=== PATIENT | male | born 1995 | race African-American/Black ===

== ENCOUNTER 2023-01-20 19:40 | Inpatient (IN) | payer MEDICARE, MEDICAID ==
[~2023-01-20] VITALS: Ht 185.4 cm; Wt 149.4 kg
[2023-01-20 20:37] LABS: BASOPHILS % (AUTO) 0.9 % (0.0-2.0); EOSINOPHILS % (AUTO) 1.7 % (1.0-6.0); HEMATOCRIT 36.8 % (41-53); HEMOGLOBIN 11.6 g/dL (13.5-17.5); LYMPHOCYTES # (AUTO) 2.2 K/uL (1.0-4.8); LYMPHOCYTES % (AUTO) 22.8 % (22.0-44.0); MEAN CORPUSCULAR HEMOGLOBIN 26.4 pg (26.0-34.0); MEAN CORPUSCULAR HGB CONC 31.6 G/dL (31.0-37.0); MEAN CORPUSCULAR VOLUME 84 fL (80-100); MONOCYTES # (AUTO) 0.8 K/uL (0.1-1.0); MONOCYTES % (AUTO) 8.4 % (2.0-9.0); NEUTROPHILS # (AUTO) 6.4 K/uL (1.8-7.7); NEUTROPHILS % (AUTO) 66.2 % (40.0-70.0); PLATELET COUNT (AUTO) 202 K/uL (150-450); RED BLOOD CELL COUNT(AUTO) 4.41 MIL/uL (4.50-5.90); WHITE BLOOD COUNT (AUTO) 9.7 K/uL (4.5-11.0)
[2023-01-20 20:46] LABS: ANION GAP 6 mmol/L (8-16); CALCIUM, TOTAL 9.1 mg/dL (8.8-10.5); CARBON DIOXIDE 28 mmol/L (22-29); CHLORIDE 103 mmol/L (98-107); CREATININE 1.01 mg/dL (0.60-1.30); GLOMERULAR FILTR. RATE CALC > 60 mL/min (>60); GLUCOSE,RANDOM 131 mg/dL (70-110); SODIUM SERUM 137 mmol/L (136-145); UREA NITROGEN, BLOOD 11 mg/dL (7-18)
[2023-01-20 20:52] LABS: ALANINE AMINOTRANSFERASE 141 U/L (12-78); ALBUMIN 3.7 g/dL (3.4-5.0); ALKALINE PHOSPHATASE 90 U/L (46-116); ASPARTATE AMINOTRANSFERASE 80 U/L (15-37); BILIRUBIN,TOTAL 0.4 mg/dL (0.1-1.0); LIPASE 60 U/L (16-77); TOTAL PROTEIN, SERUM 7.7 g/dL (6.4-8.2)
[2023-01-20] MEDS ORDERED: QUET100T PO (22:02)
[2023-01-20] MEDS ORDERED: CLOZ100T61 PO (22:02)
[2023-01-21 00:47] LABS: COVID AG,FIA SOURCE NASAL SWAB
[2023-01-21 00:51] LABS: SARS-COV2 (COVID) ANTIGEN,FIA Negative (Negative)
[2023-01-21 02:19] VITALS: BP 130/90; PULSE 96; RESP 18; TEMP 97.4
[2023-01-21 02:24] VITALS: BP 130/90; PULSE 96; RESP 18; TEMP 97.4; O2SAT 100
[2023-01-21] MEDS ORDERED: INFLUENZA VIRUS VACCINE QVS 2023-24 (6MO+)/PF 60 MCG/0.5 ML SYRINGE IM. ONE (05:30)
[2023-01-21 10:01] VITALS: BP 151/80; PULSE 86; RESP 18; TEMP 97.5; O2SAT 94
[2023-01-21] MEDS ORDERED: PETROLATUM,WHITE 28 GM JELLY TP PRN (14:30)
[2023-01-21] MEDS ORDERED: LOPERAMIDE HCL 2 MG CAPSULE PO PRN (14:30)
[2023-01-21] MEDS ORDERED: CloNIDine HCL 0.1 MG TABLET PO PRN (14:30)
[2023-01-21] MEDS ORDERED: ONDANSETRON HCL 4 MG TABLET PO PRN (14:30)
[2023-01-21] MEDS ORDERED: MAGNESIUM HYDROXIDE SUSPENSION 30 ML UDCUP PO PRN (14:30)
[2023-01-21] MEDS: MAG HYDROX/ALUMINUM HYD/SIMETH ES 30 ML SUSPENSION UDCUP PO PRN (14:39)
[2023-01-21] MEDS: ACETAMINOPHEN 325 MG TABLET PO PRN (14:51)
[2023-01-21] MEDS: LORazepam 2 MG TABLET PO PRN (18:30)
[2023-01-21 20:35] VITALS: BP 134/77; PULSE 91; RESP 18; TEMP 97.9; O2SAT 95
[2023-01-21] MEDS: HALOPERIDOL 5 MG TABLET PO PRN (20:57)
[2023-01-21] MEDS: ZOLPIDEM TARTRATE 10 MG TABLET PO PRN (20:57)
[2023-01-22] MEDS: MAG HYDROX/ALUMINUM HYD/SIMETH ES 30 ML SUSPENSION UDCUP PO PRN ×2 (06:48→17:06)
[2023-01-22] MEDS: LORazepam 2 MG TABLET PO PRN ×3 (07:58→21:12)
[2023-01-22] MEDS: BENZOCAINE/MENTHOL LOZENGE PO PRN ×2 (08:47→18:57)
[2023-01-22 10:06] VITALS: BP 149/101; PULSE 91; RESP 18; TEMP 97; O2SAT 99
[2023-01-22] MEDS ORDERED: DIVA500T53 PO (11:44)
[2023-01-22] MEDS ORDERED: METF-446 PO (11:44)
[2023-01-22] MEDS ORDERED: DIPH50CA35 PO (11:44)
[2023-01-22] MEDS ORDERED: PROP20TA96 PO (11:44)
[2023-01-22] MEDS: ALBUTEROL SULFATE HFA 90 MCG/PUFF 8 GM INHALER IH PRN (12:11)
[2023-01-22] MEDS ORDERED: FLUTICASONE PROPIONATE 50 MCG/SPRAY 16 GM NASAL SPRAY NASAL PRN (13:45)
[2023-01-22] MEDS: DIVALPROEX SODIUM 500 MG DR TABLET PO SCH (16:31)
[2023-01-22] MEDS: OMEPRAZOLE 20 MG CAPSULE PO PRN (18:48)
[2023-01-22] MEDS: BENZTROPINE MESYLATE 2 MG TABLET PO SCH (20:22)
[2023-01-22 20:34] VITALS: BP 136/78; PULSE 88; RESP 18; TEMP 97.2
[2023-01-22] MEDS: ZOLPIDEM TARTRATE 10 MG TABLET PO PRN (21:12)
[2023-01-23] MEDS: LORazepam 2 MG TABLET PO PRN ×4 (02:51→19:52)
[2023-01-23] MEDS: BACITRACIN 28 GM OINTMENT TP PRN (03:09)
[2023-01-23 06:06] LABS: HEPATITIS A ANTIBODY IGM Negative (Negative); HEPATITIS B CORE IGM Negative (Negative); HEPATITIS C AB (EIA) Non Reactive (Non Reactive); HIV 1-2 SCREEN 4TH GEN W/RFLX Non Reactive (Non Reactive)
[2023-01-23] MEDS: DIVALPROEX SODIUM 500 MG DR TABLET PO SCH ×2 (07:59→16:30)
[2023-01-23 08:38] VITALS: BP 153/93; PULSE 85; RESP 16; TEMP 98.1; O2SAT 97
[2023-01-23] MEDS: HALOPERIDOL 5 MG TABLET PO PRN ×3 (08:43→19:52)
[2023-01-23] MEDS ORDERED: CloZAPine 25 MG TABLET PO SCH (09:00)
[2023-01-23 09:21] LABS: BASOPHILS % (AUTO) 0.6 % (0.0-2.0); EOSINOPHILS % (AUTO) 1.6 % (1.0-6.0); HEMATOCRIT 41.4 % (41-53); HEMOGLOBIN 13.1 g/dL (13.5-17.5); LYMPHOCYTES # (AUTO) 2.8 K/uL (1.0-4.8); LYMPHOCYTES % (AUTO) 24.5 % (22.0-44.0); MEAN CORPUSCULAR HEMOGLOBIN 26.2 pg (26.0-34.0); MEAN CORPUSCULAR HGB CONC 31.6 G/dL (31.0-37.0); MEAN CORPUSCULAR VOLUME 83 fL (80-100); MONOCYTES # (AUTO) 0.8 K/uL (0.1-1.0); NEUTROPHILS # (AUTO) 7.5 K/uL (1.8-7.7); NEUTROPHILS % (AUTO) 66.3 % (40.0-70.0); PLATELET COUNT (AUTO) 210 K/uL (150-450); RED BLOOD CELL COUNT(AUTO) 4.99 MIL/uL (4.50-5.90); RED CELL DISTRIBUTION WIDTH 14.9 % (11.5-14.5); WHITE BLOOD COUNT (AUTO) 11.4 K/uL (4.5-11.0)
[2023-01-23] MEDS: ZOLPIDEM TARTRATE 10 MG TABLET PO PRN (21:38)
[2023-01-23] MEDS: BENZTROPINE MESYLATE 2 MG TABLET PO SCH (21:40)
[2023-01-23 22:07] VITALS: BP 146/86; PULSE 84; RESP 16; TEMP 97.8
[2023-01-24] MEDS: BENZOCAINE/MENTHOL LOZENGE PO PRN ×2 (00:45→05:05)
[2023-01-24] MEDS: HALOPERIDOL 5 MG TABLET PO PRN ×2 (05:05→08:11)
[2023-01-24] MEDS: DIVALPROEX SODIUM 500 MG DR TABLET PO SCH ×2 (08:12→16:41)
[2023-01-24 08:15] VITALS: BP 151/97; PULSE 94; RESP 16; TEMP 96.5; O2SAT 98
[2023-01-24] MEDS: IBUPROFEN 600 MG TABLET PO PRN ×2 (08:15→21:18)
[2023-01-24] MEDS ORDERED: CloZAPine 25 MG TABLET PO SCH ×2 (09:00→21:00)
[2023-01-24 09:15] VITALS: BP 148/84; PULSE 90; RESP 17; TEMP 97.2
[2023-01-24 13:05] VITALS: BP 151/97; PULSE 94; RESP 16; TEMP 96.5
[2023-01-24 20:45] VITALS: RESP 20
[2023-01-24 21:15] VITALS: BP 140/87; PULSE 87; RESP 18; TEMP 98.2; O2SAT 98
[2023-01-24] MEDS: ALBUTEROL SULFATE HFA 90 MCG/PUFF 8 GM INHALER IH PRN (21:15)
[2023-01-24] MEDS: MAG HYDROX/ALUMINUM HYD/SIMETH ES 30 ML SUSPENSION UDCUP PO PRN (21:16)
[2023-01-24] MEDS: BENZTROPINE MESYLATE 2 MG TABLET PO SCH (21:17)
[2023-01-24] MEDS: ZOLPIDEM TARTRATE 10 MG TABLET PO PRN (21:17)
[2023-01-24] MEDS: OMEPRAZOLE 20 MG CAPSULE PO PRN (21:18)
[2023-01-24 22:18] VITALS: RESP 18
[2023-01-25] MEDS: PHENYLEPHRINE/SHK LV/MIN OIL/PET 57 GM OINTMENT TP PRN (04:35)
[2023-01-25] MEDS: HALOPERIDOL 5 MG TABLET PO PRN ×3 (08:01→12:26)
[2023-01-25] MEDS: CloZAPine 25 MG TABLET PO SCH ×2 (08:15→08:25)
[2023-01-25] MEDS: DIVALPROEX SODIUM 500 MG DR TABLET PO SCH ×2 (08:25→17:03)
[2023-01-25] MEDS: DOCUSATE SODIUM 100 MG CAPSULE PO PRN (09:56)
[2023-01-25 10:22] VITALS: PULSE 89; RESP 18; TEMP 97.5; O2SAT 98
[2023-01-25] MEDS: ALBUTEROL SULFATE HFA 90 MCG/PUFF 8 GM INHALER IH PRN ×2 (12:21→20:55)
[2023-01-25 17:04] VITALS: RESP 18; TEMP 98
[2023-01-25] MEDS: IBUPROFEN 600 MG TABLET PO PRN (17:04)
[2023-01-25 18:05] VITALS: RESP 18; TEMP 98
[2023-01-25] MEDS: BENZOCAINE/MENTHOL LOZENGE PO PRN (18:21)
[2023-01-25] MEDS: ZOLPIDEM TARTRATE 10 MG TABLET PO PRN (20:55)
[2023-01-25] MEDS: BENZTROPINE MESYLATE 2 MG TABLET PO SCH (20:56)
[2023-01-25] MEDS ORDERED: CloZAPine 25 MG TABLET PO SCH (21:00)
[2023-01-26] MEDS: HALOPERIDOL 5 MG TABLET PO PRN ×2 (05:24→17:15)
[2023-01-26] MEDS: ALBUTEROL SULFATE HFA 90 MCG/PUFF 8 GM INHALER IH PRN (08:14)
[2023-01-26 08:15] VITALS: BP 154/105; PULSE 87; RESP 18; TEMP 98; O2SAT 97
[2023-01-26] MEDS: IBUPROFEN 600 MG TABLET PO PRN (08:15)
[2023-01-26] MEDS: CloZAPine 25 MG TABLET PO SCH ×2 (08:15→21:10)
[2023-01-26] MEDS: DIVALPROEX SODIUM 500 MG DR TABLET PO SCH ×2 (08:40→16:46)
[2023-01-26 09:15] VITALS: RESP 18
[2023-01-26 20:00] VITALS: BP 162/98; PULSE 90; RESP 18; TEMP 98; O2SAT 98
[2023-01-26] MEDS: ZOLPIDEM TARTRATE 10 MG TABLET PO PRN (21:10)
[2023-01-26] MEDS: BENZTROPINE MESYLATE 2 MG TABLET PO SCH (21:10)
[2023-01-27] MEDS: HALOPERIDOL 5 MG TABLET PO PRN ×3 (00:30→16:25)
[2023-01-27] MEDS: CloZAPine 25 MG TABLET PO SCH ×2 (08:19→21:06)
[2023-01-27] MEDS: IBUPROFEN 600 MG TABLET PO PRN ×2 (08:19→16:25)
[2023-01-27] MEDS: DOCUSATE SODIUM 100 MG CAPSULE PO PRN (08:19)
[2023-01-27] MEDS: DIVALPROEX SODIUM 500 MG DR TABLET PO SCH ×2 (08:19→16:27)
[2023-01-27] MEDS: BENZOCAINE/MENTHOL LOZENGE PO PRN (08:25)
[2023-01-27 09:18] VITALS: BP 165/106; PULSE 100; RESP 18; TEMP 97; O2SAT 97
[2023-01-27 10:18] VITALS: RESP 18
[2023-01-27 16:25] VITALS: RESP 20
[2023-01-27 17:25] VITALS: RESP 18
[2023-01-27 21:03] VITALS: RESP 18
[2023-01-27] MEDS: BENZTROPINE MESYLATE 2 MG TABLET PO SCH (21:06)
[2023-01-28] MEDS: ZOLPIDEM TARTRATE 10 MG TABLET PO PRN ×2 (00:12→21:15)
[2023-01-28] MEDS ORDERED: HALOPERIDOL LACTATE 5 MG/ML VIAL IM ONE ×2 (00:45→01:00)
[2023-01-28] MEDS ORDERED: DiphenhydrAMINE HCL 50 MG/ML VIAL IM ONE (00:45)
[2023-01-28] MEDS ORDERED: LORazepam 2 MG/ML VIAL IM ONE (00:45)
[2023-01-28] MEDS ORDERED: LORazepam 2 MG/ML VIAL ONE (00:47)
[2023-01-28] MEDS ORDERED: HALOPERIDOL LACTATE 5 MG/ML VIAL ONE (00:47)
[2023-01-28] MEDS ORDERED: DiphenhydrAMINE HCL 50 MG/ML VIAL ONE (00:47)
[2023-01-28 07:32] VITALS: RESP 18
[2023-01-28] MEDS: ACETAMINOPHEN 325 MG TABLET PO PRN ×3 (07:36→16:57)
[2023-01-28] MEDS: DIVALPROEX SODIUM 500 MG DR TABLET PO SCH ×2 (08:06→16:38)
[2023-01-28 08:32] VITALS: BP 152/90; PULSE 98; RESP 18; TEMP 97.2
[2023-01-28] MEDS ORDERED: CloZAPine 25 MG TABLET PO SCH (09:00)
[2023-01-28] MEDS: PHENYLEPHRINE/SHK LV/MIN OIL/PET 57 GM OINTMENT TP PRN (09:13)
[2023-01-28] MEDS: ALBUTEROL SULFATE HFA 90 MCG/PUFF 8 GM INHALER IH PRN (09:33)
[2023-01-28] MEDS: DOCUSATE SODIUM 100 MG CAPSULE PO PRN (09:34)
[2023-01-28 09:37] VITALS: BP 152/90; PULSE 100; RESP 19; TEMP 97.6; O2SAT 96
[2023-01-28] MEDS: IBUPROFEN 600 MG TABLET PO PRN (16:59)
[2023-01-28 20:30] VITALS: RESP 18
[2023-01-28] MEDS ORDERED: CloZAPine 100 MG TABLET PO SCH (21:00)
[2023-01-28] MEDS: BENZTROPINE MESYLATE 2 MG TABLET PO SCH (21:15)
[2023-01-29 02:15] VITALS: BP 150/96; PULSE 92; RESP 20; TEMP 97.9; O2SAT 98
[2023-01-29] MEDS: IBUPROFEN 600 MG TABLET PO PRN (02:20)
[2023-01-29] MEDS: OMEPRAZOLE 20 MG CAPSULE PO PRN (07:29)
[2023-01-29] MEDS: DIVALPROEX SODIUM 500 MG DR TABLET PO SCH ×3 (07:30→18:53)
[2023-01-29] MEDS ORDERED: CloZAPine 25 MG TABLET PO SCH (09:00)
[2023-01-29 13:35] VITALS: BP 133/113; PULSE 119; RESP 18; TEMP 97.1
[2023-01-29] MEDS: ACETAMINOPHEN 325 MG TABLET PO PRN (13:35)
[2023-01-29] MEDS ORDERED: HALOPERIDOL LACTATE 5 MG/ML VIAL IM ONE (14:30)
[2023-01-29] MEDS ORDERED: LORazepam 2 MG/ML VIAL IM ONE (14:30)
[2023-01-29] MEDS ORDERED: DiphenhydrAMINE HCL 50 MG/ML VIAL IM ONE (14:30)
[2023-01-29 14:35] VITALS: BP 136/82; PULSE 86; RESP 18; TEMP 98
[2023-01-29] MEDS: BACITRACIN 28 GM OINTMENT TP PRN (18:53)
[2023-01-29 20:38] VITALS: RESP 18
[2023-01-29] MEDS: BENZTROPINE MESYLATE 2 MG TABLET PO SCH (20:56)
[2023-01-29] MEDS ORDERED: CloZAPine 100 MG TABLET PO SCH (21:00)
[2023-01-29] MEDS: ZOLPIDEM TARTRATE 10 MG TABLET PO PRN (23:19)
[2023-01-29] MEDS: HALOPERIDOL 5 MG TABLET PO PRN (23:20)
[2023-01-30] VITALS (11 sets, daily range): BP systolic 117–179; BP diastolic 67–107; PULSE 53–99; RESP 17–20; TEMP 97.2–97.6
[2023-01-30] MEDS: IBUPROFEN 600 MG TABLET PO PRN ×3 (00:15→17:33)
[2023-01-30] MEDS: DIVALPROEX SODIUM 500 MG DR TABLET PO SCH ×2 (08:10→17:00)
[2023-01-30] MEDS: HALOPERIDOL 5 MG TABLET PO PRN ×2 (08:10→17:33)
[2023-01-30] MEDS: PHENYLEPHRINE/SHK LV/MIN OIL/PET 57 GM OINTMENT TP PRN (08:13)
[2023-01-30] MEDS: DOCUSATE SODIUM 100 MG CAPSULE PO PRN (08:30)
[2023-01-30] MEDS ORDERED: CloZAPine 25 MG TABLET PO SCH (09:00)
[2023-01-30] MEDS: ACETAMINOPHEN 325 MG TABLET PO PRN (09:40)
[2023-01-30 09:48] LABS: BASOPHILS % (AUTO) 0.4 % (0.0-2.0); EOSINOPHILS % (AUTO) 1.7 % (1.0-6.0); HEMATOCRIT 39.9 % (41-53); HEMOGLOBIN 12.8 g/dL (13.5-17.5); LYMPHOCYTES # (AUTO) 2.3 K/uL (1.0-4.8); LYMPHOCYTES % (AUTO) 27.6 % (22.0-44.0); MEAN CORPUSCULAR HEMOGLOBIN 26.5 pg (26.0-34.0); MEAN CORPUSCULAR VOLUME 83 fL (80-100); MONOCYTES # (AUTO) 0.6 K/uL (0.1-1.0); MONOCYTES % (AUTO) 7.5 % (2.0-9.0); NEUTROPHILS # (AUTO) 5.3 K/uL (1.8-7.7); NEUTROPHILS % (AUTO) 62.8 % (40.0-70.0); PLATELET COUNT (AUTO) 174 K/uL (150-450); RED BLOOD CELL COUNT(AUTO) 4.83 MIL/uL (4.50-5.90); RED CELL DISTRIBUTION WIDTH 14.8 % (11.5-14.5); WHITE BLOOD COUNT (AUTO) 8.4 K/uL (4.5-11.0)
[2023-01-30] MEDS: TraMADol HCL 50 MG TABLET PO PRN ×2 (13:15→19:41)
[2023-01-30] MEDS: BENZTROPINE MESYLATE 2 MG TABLET PO SCH (20:12)
[2023-01-30] MEDS ORDERED: CloZAPine 100 MG TABLET PO SCH (21:00)
[2023-01-31] MEDS: ACETAMINOPHEN 325 MG TABLET PO PRN ×2 (02:28→09:53)
[2023-01-31 03:25] VITALS: RESP 18
[2023-01-31] MEDS: CloZAPine 100 MG TABLET PO SCH ×2 (08:16→21:58)
[2023-01-31 08:17] VITALS: BP 154/92; PULSE 90; RESP 18; TEMP 97.8; O2SAT 98
[2023-01-31] MEDS: DIVALPROEX SODIUM 500 MG DR TABLET PO SCH ×2 (09:00→16:58)
[2023-01-31 09:50] VITALS: RESP 18
[2023-01-31 10:53] VITALS: RESP 18
[2023-01-31] MEDS ORDERED: PNEUMOCOCCAL VACCINE POLYVALENT 0.5 ML SYRINGE [PPSV23] IM. ONE (15:15)
[2023-01-31] MEDS: BENZTROPINE MESYLATE 2 MG TABLET PO SCH (21:58)
[2023-02-01] VITALS (8 sets, daily range): BP systolic 123–128; BP diastolic 90–94; PULSE 92–99; RESP 18–20; TEMP 97.1–98.2; O2SAT 98–99
[2023-02-01] MEDS: CloZAPine 100 MG TABLET PO SCH ×2 (08:14→21:37)
[2023-02-01] MEDS: ACETAMINOPHEN 325 MG TABLET PO PRN ×2 (08:15→16:43)
[2023-02-01] MEDS: DIVALPROEX SODIUM 500 MG DR TABLET PO SCH ×2 (08:23→16:43)
[2023-02-01] MEDS: TraMADol HCL 50 MG TABLET PO PRN (10:12)
[2023-02-01] MEDS: BENZTROPINE MESYLATE 2 MG TABLET PO SCH (21:36)
[2023-02-01] MEDS: ZOLPIDEM TARTRATE 10 MG TABLET PO PRN (22:11)
[2023-02-01] MEDS: IBUPROFEN 600 MG TABLET PO PRN (22:11)
[2023-02-02 08:15] VITALS: BP 138/84; PULSE 101; RESP 18; TEMP 97.6; O2SAT 97
[2023-02-02] MEDS ORDERED: CloZAPine 25 MG TABLET PO SCH (09:00)
[2023-02-02] MEDS: DIVALPROEX SODIUM 500 MG DR TABLET PO SCH ×3 (09:00→17:00)
[2023-02-02] MEDS: HALOPERIDOL 5 MG TABLET PO PRN (09:30)
[2023-02-02 20:07] VITALS: RESP 18
[2023-02-02] MEDS: BENZTROPINE MESYLATE 2 MG TABLET PO SCH (20:24)
[2023-02-02] MEDS ORDERED: CloZAPine 100 MG TABLET PO SCH (21:00)
[2023-02-02 21:25] VITALS: BP 140/92; PULSE 95; RESP 20; TEMP 97.9; O2SAT 98
[2023-02-02] MEDS: IBUPROFEN 600 MG TABLET PO PRN (21:29)
[2023-02-02] MEDS: ZOLPIDEM TARTRATE 10 MG TABLET PO PRN (21:29)
[2023-02-03] MEDS: DIVALPROEX SODIUM 500 MG DR TABLET PO SCH ×2 (08:21→16:04)
[2023-02-03] MEDS ORDERED: CloZAPine 25 MG TABLET PO SCH (09:00)
[2023-02-03 10:29] VITALS: BP 125/78; PULSE 113; RESP 18; TEMP 97.9; O2SAT 95
[2023-02-03] MEDS: BENZTROPINE MESYLATE 2 MG TABLET PO SCH (20:17)
[2023-02-03 20:19] VITALS: BP 120/80; PULSE 85; RESP 17; TEMP 97.8; O2SAT 98
[2023-02-03] MEDS ORDERED: CloZAPine 100 MG TABLET PO SCH (21:00)
[2023-02-03 22:35] VITALS: BP 132/76; PULSE 89; RESP 18; TEMP 98.6
[2023-02-03] MEDS: HALOPERIDOL 5 MG TABLET PO PRN (22:36)
[2023-02-03] MEDS: ZOLPIDEM TARTRATE 10 MG TABLET PO PRN (22:36)
[2023-02-03] MEDS: TraMADol HCL 50 MG TABLET PO PRN (22:42)
[2023-02-04 08:01] VITALS: RESP 18
[2023-02-04] MEDS: DIVALPROEX SODIUM 500 MG DR TABLET PO SCH ×2 (09:00→17:00)
[2023-02-04] MEDS: CloZAPine 100 MG TABLET PO SCH ×2 (09:52→20:21)
[2023-02-04 15:13] VITALS: RESP 18
[2023-02-04] MEDS: IBUPROFEN 600 MG TABLET PO PRN ×2 (15:13→21:17)
[2023-02-04 16:13] VITALS: RESP 18; TEMP 98
[2023-02-04] MEDS: BENZTROPINE MESYLATE 2 MG TABLET PO SCH (20:20)
[2023-02-04 20:29] VITALS: BP 152/88; PULSE 116; RESP 18; TEMP 98.3; O2SAT 95
[2023-02-04] MEDS: HALOPERIDOL 5 MG TABLET PO PRN (21:17)
[2023-02-04] MEDS: ZOLPIDEM TARTRATE 10 MG TABLET PO PRN (21:17)
[2023-02-05 08:28] VITALS: BP 122/69; PULSE 100; RESP 18; TEMP 97.8; O2SAT 95
[2023-02-05] MEDS: DIVALPROEX SODIUM 500 MG DR TABLET PO SCH ×2 (09:00→17:00)
[2023-02-05 09:58] VITALS: RESP 18; TEMP 98
[2023-02-05] MEDS: CloZAPine 100 MG TABLET PO SCH ×2 (09:58→21:22)
[2023-02-05] MEDS: TraMADol HCL 50 MG TABLET PO PRN (09:58)
[2023-02-05 10:58] VITALS: RESP 18; TEMP 98.1
[2023-02-05 20:07] VITALS: RESP 18
[2023-02-05] MEDS: BENZTROPINE MESYLATE 2 MG TABLET PO SCH (21:00)
[2023-02-05] MEDS: ZOLPIDEM TARTRATE 10 MG TABLET PO PRN (21:23)
[2023-02-05] MEDS: HALOPERIDOL 5 MG TABLET PO PRN (21:23)
[2023-02-05 23:30] VITALS: RESP 19
[2023-02-05] MEDS: ACETAMINOPHEN 325 MG TABLET PO PRN (23:31)
[2023-02-05] MEDS: IBUPROFEN 600 MG TABLET PO PRN (23:43)
[2023-02-05] MEDS ORDERED: HALOPERIDOL LACTATE 5 MG/ML VIAL IM ONE (23:45)
[2023-02-05] MEDS ORDERED: LORazepam 2 MG/ML VIAL IM ONE (23:45)
[2023-02-05] MEDS ORDERED: DiphenhydrAMINE HCL 50 MG/ML VIAL IM ONE (23:45)
[2023-02-06] MEDS: CloZAPine 100 MG TABLET PO SCH ×2 (08:09→20:28)
[2023-02-06] MEDS: HALOPERIDOL 5 MG TABLET PO PRN (08:09)
[2023-02-06] MEDS: DIVALPROEX SODIUM 500 MG DR TABLET PO SCH ×2 (08:12→16:10)
[2023-02-06 08:27] VITALS: BP 100/73; PULSE 71; RESP 18; TEMP 97.9
[2023-02-06] MEDS: TraMADol HCL 50 MG TABLET PO PRN ×2 (12:06→22:06)
[2023-02-06 12:07] VITALS: RESP 18
[2023-02-06 13:39] VITALS: RESP 18
[2023-02-06] MEDS: ACETAMINOPHEN 325 MG TABLET PO PRN (13:39)
[2023-02-06 20:05] VITALS: BP 153/96; PULSE 102; RESP 18; TEMP 98.1
[2023-02-06] MEDS: BENZTROPINE MESYLATE 2 MG TABLET PO SCH (20:28)
[2023-02-06] MEDS: ZOLPIDEM TARTRATE 10 MG TABLET PO PRN (21:14)
[2023-02-06 22:00] VITALS: BP 116/61; PULSE 98; RESP 20; TEMP 98.3
[2023-02-06 23:06] VITALS: RESP 18
[2023-02-07] MEDS: DIVALPROEX SODIUM 500 MG DR TABLET PO SCH ×2 (09:00→17:00)
[2023-02-07] MEDS: CloZAPine 100 MG TABLET PO SCH ×2 (09:27→20:12)
[2023-02-07 09:32] VITALS: BP 153/85; PULSE 101; RESP 18; TEMP 97.8; O2SAT 100
[2023-02-07] MEDS: ACETAMINOPHEN 325 MG TABLET PO PRN (09:32)
[2023-02-07 10:32] VITALS: RESP 18
[2023-02-07 17:11] LABS: HEMATOCRIT 38.9 % (41-53); HEMOGLOBIN 12.4 g/dL (13.5-17.5); MEAN CORPUSCULAR HGB CONC 31.9 G/dL (31.0-37.0); MEAN CORPUSCULAR VOLUME 82 fL (80-100); PLATELET COUNT (AUTO) 201 K/uL (150-450); RED BLOOD CELL COUNT(AUTO) 4.77 MIL/uL (4.50-5.90); RED CELL DISTRIBUTION WIDTH 14.2 % (11.5-14.5); WHITE BLOOD COUNT (AUTO) 13.2 K/uL (4.5-11.0)
[2023-02-07 18:08] LABS: BAND NEUTROPHILS % (MANUAL) 6 % (0-5); BASOPHILS % (MANUAL) 1 % (0-2); EOSINOPHILS % (MANUAL) 2 % (1-6); LYMPHOCYTES % (MANUAL) 22 % (22-44); MONOCYTES % (MANUAL) 8 % (2-9); SEGMENTED NEUTROPHILS % 61 % (40-70); TOTAL CELLS COUNTED 100
[2023-02-07] MEDS: BENZTROPINE MESYLATE 2 MG TABLET PO SCH (21:00)
[2023-02-07] MEDS: ZOLPIDEM TARTRATE 10 MG TABLET PO PRN (21:32)
[2023-02-08 07:40] LABS: BASOPHILS % (AUTO) 0.8 % (0.0-2.0); EOSINOPHILS % (AUTO) 2.8 % (1.0-6.0); HEMATOCRIT 38.5 % (41-53); HEMOGLOBIN 12.5 g/dL (13.5-17.5); LYMPHOCYTES # (AUTO) 2.8 K/uL (1.0-4.8); LYMPHOCYTES % (AUTO) 22.5 % (22.0-44.0); MEAN CORPUSCULAR HEMOGLOBIN 26.4 pg (26.0-34.0); MEAN CORPUSCULAR HGB CONC 32.6 G/dL (31.0-37.0); MEAN CORPUSCULAR VOLUME 81 fL (80-100); MONOCYTES # (AUTO) 0.7 K/uL (0.1-1.0); MONOCYTES % (AUTO) 5.9 % (2.0-9.0); NEUTROPHILS # (AUTO) 8.4 K/uL (1.8-7.7); PLATELET COUNT (AUTO) 196 K/uL (150-450); RED BLOOD CELL COUNT(AUTO) 4.75 MIL/uL (4.50-5.90); RED CELL DISTRIBUTION WIDTH 14.3 % (11.5-14.5); WHITE BLOOD COUNT (AUTO) 12.4 K/uL (4.5-11.0)
[2023-02-08 08:03] VITALS: BP 135/74; PULSE 100; RESP 18; TEMP 97.7; O2SAT 97
[2023-02-08] MEDS: CloZAPine 100 MG TABLET PO SCH ×2 (08:35→20:05)
[2023-02-08] MEDS: DIVALPROEX SODIUM 500 MG DR TABLET PO SCH ×2 (08:37→16:21)
[2023-02-08 14:29] VITALS: RESP 18; O2SAT 98
[2023-02-08] MEDS: IBUPROFEN 600 MG TABLET PO PRN (14:29)
[2023-02-08] MEDS: BENZTROPINE MESYLATE 2 MG TABLET PO SCH (20:05)
[2023-02-08] MEDS: ZOLPIDEM TARTRATE 10 MG TABLET PO PRN (21:41)
[2023-02-08 23:02] VITALS: RESP 18
[2023-02-09 08:00] VITALS: RESP 18
[2023-02-09] MEDS: DIVALPROEX SODIUM 500 MG DR TABLET PO SCH ×2 (08:46→17:00)
[2023-02-09] MEDS: CloZAPine 100 MG TABLET PO SCH ×2 (08:46→20:10)
[2023-02-09] MEDS: DICLOFENAC SODIUM 1% 100 GM GEL [4GM] TP SCH (18:38)
[2023-02-09] MEDS: HALOPERIDOL 5 MG TABLET PO PRN (19:59)
[2023-02-09] MEDS: BENZTROPINE MESYLATE 2 MG TABLET PO SCH (20:10)
[2023-02-09] MEDS: ZOLPIDEM TARTRATE 10 MG TABLET PO PRN (21:21)
[2023-02-10 08:53] VITALS: RESP 18
[2023-02-10] MEDS: DIVALPROEX SODIUM 500 MG DR TABLET PO SCH ×3 (09:00→16:11)
[2023-02-10] MEDS: CloZAPine 100 MG TABLET PO SCH ×2 (09:21→21:13)
[2023-02-10] MEDS: PHENYLEPHRINE/SHK LV/MIN OIL/PET 57 GM OINTMENT TP PRN (09:22)
[2023-02-10] MEDS: DICLOFENAC SODIUM 1% 100 GM GEL [4GM] TP SCH ×3 (09:23→16:11)
[2023-02-10] MEDS ORDERED: TUBERCULIN, PURIFIED PROTEIN DERIVATIVE 5 TU/0.1 ML SYRINGE ID ONE (15:45)
[2023-02-10 17:51] LABS: COVID AG,FIA SOURCE NASAL SWAB
[2023-02-10 18:09] LABS: SARS-COV2 (COVID) ANTIGEN,FIA Negative (Negative)
[2023-02-10] MEDS: HALOPERIDOL 5 MG TABLET PO PRN (21:13)
[2023-02-10] MEDS: ZOLPIDEM TARTRATE 10 MG TABLET PO PRN (21:18)
[2023-02-10] MEDS: BENZTROPINE MESYLATE 2 MG TABLET PO SCH (21:18)
[2023-02-10 21:45] VITALS: RESP 18; TEMP 98.1
[2023-02-10] MEDS: TraMADol HCL 50 MG TABLET PO PRN (21:45)
[2023-02-10 22:59] VITALS: RESP 18
[2023-02-11] MEDS: CloZAPine 100 MG TABLET PO SCH ×2 (07:46→21:18)
[2023-02-11] MEDS: DICLOFENAC SODIUM 1% 100 GM GEL [4GM] TP SCH ×3 (07:46→16:30)
[2023-02-11] MEDS: DIVALPROEX SODIUM 500 MG DR TABLET PO SCH ×2 (07:46→16:30)
[2023-02-11 08:05] VITALS: BP 125/74; PULSE 110; RESP 19; TEMP 98.1; O2SAT 95
[2023-02-11 20:03] VITALS: BP 132/62; PULSE 94; RESP 18; TEMP 97.2; O2SAT 96
[2023-02-11 20:18] VITALS: BP 133/66; PULSE 97; RESP 20; TEMP 97.5; O2SAT 97
[2023-02-11] MEDS: TraMADol HCL 50 MG TABLET PO PRN (20:18)
[2023-02-11 21:18] VITALS: RESP 18; TEMP 97.4
[2023-02-11] MEDS: BENZTROPINE MESYLATE 2 MG TABLET PO SCH (21:18)
[2023-02-11] MEDS: ZOLPIDEM TARTRATE 10 MG TABLET PO PRN (21:18)
[2023-02-11] MEDS: HALOPERIDOL 5 MG TABLET PO PRN (21:18)
[2023-02-12 08:30] VITALS: RESP 18
[2023-02-12] MEDS: DIVALPROEX SODIUM 500 MG DR TABLET PO SCH ×2 (09:00→16:01)
[2023-02-12] MEDS: CloZAPine 100 MG TABLET PO SCH ×2 (09:00→20:22)
[2023-02-12] MEDS: DICLOFENAC SODIUM 1% 100 GM GEL [4GM] TP SCH ×3 (11:05→16:01)
[2023-02-12 20:04] VITALS: RESP 18
[2023-02-12] MEDS: BENZTROPINE MESYLATE 2 MG TABLET PO SCH (20:22)
[2023-02-13] MEDS: DICLOFENAC SODIUM 1% 100 GM GEL [4GM] TP SCH ×3 (07:51→16:13)
[2023-02-13] MEDS: DIVALPROEX SODIUM 500 MG DR TABLET PO SCH ×2 (07:51→16:13)
[2023-02-13] MEDS: CloZAPine 100 MG TABLET PO SCH ×2 (07:52→20:36)
[2023-02-13 09:34] VITALS: BP 119/81; PULSE 86; RESP 16; TEMP 96.6; O2SAT 95
[2023-02-13 20:03] VITALS: BP 125/74; PULSE 110; RESP 18; TEMP 97.5; O2SAT 95
[2023-02-13] MEDS: HALOPERIDOL 5 MG TABLET PO PRN (20:36)
[2023-02-13] MEDS: ZOLPIDEM TARTRATE 10 MG TABLET PO PRN (20:36)
[2023-02-13] MEDS: BENZTROPINE MESYLATE 2 MG TABLET PO SCH (20:36)
[2023-02-14] MEDS: DIVALPROEX SODIUM 500 MG DR TABLET PO SCH ×2 (09:00→16:15)
[2023-02-14] MEDS: DICLOFENAC SODIUM 1% 100 GM GEL [4GM] TP SCH ×3 (09:00→16:15)
[2023-02-14] MEDS: CloZAPine 100 MG TABLET PO SCH ×2 (09:55→20:39)
[2023-02-14] MEDS: BENZTROPINE MESYLATE 2 MG TABLET PO SCH (20:41)
[2023-02-14] MEDS: ZOLPIDEM TARTRATE 10 MG TABLET PO PRN (23:22)
[2023-02-15] MEDS: CloZAPine 100 MG TABLET PO SCH (08:13)
[2023-02-15] MEDS: DICLOFENAC SODIUM 1% 100 GM GEL [4GM] TP SCH ×3 (08:13→17:00)
[2023-02-15] MEDS: DIVALPROEX SODIUM 500 MG DR TABLET PO SCH ×2 (08:13→17:00)
[2023-02-15 09:04] VITALS: RESP 18
[2023-02-15 10:26] LABS: EOSINOPHILS % (AUTO) 2.5 % (1.0-6.0); HEMATOCRIT 39.8 % (41-53); HEMOGLOBIN 12.8 g/dL (13.5-17.5); LYMPHOCYTES # (AUTO) 2.3 K/uL (1.0-4.8); LYMPHOCYTES % (AUTO) 18.6 % (22.0-44.0); MEAN CORPUSCULAR HEMOGLOBIN 26.2 pg (26.0-34.0); MEAN CORPUSCULAR HGB CONC 32.3 G/dL (31.0-37.0); MEAN CORPUSCULAR VOLUME 81 fL (80-100); MONOCYTES # (AUTO) 0.6 K/uL (0.1-1.0); MONOCYTES % (AUTO) 4.9 % (2.0-9.0); PLATELET COUNT (AUTO) 235 K/uL (150-450); RED CELL DISTRIBUTION WIDTH 14.5 % (11.5-14.5); WHITE BLOOD COUNT (AUTO) 12.3 K/uL (4.5-11.0)
[2023-02-15] MEDS ORDERED: DIVA-112 PO (10:54)
[2023-02-15] MEDS ORDERED: CLOZ100T61 PO ×2 (10:54)
[2023-02-15] MEDS ORDERED: BENZ2TAB71 PO (10:54)
[2023-02-15] MEDS ORDERED: DICL100G60 TP (12:17)
== END 2023-02-15 12:00 | disposition home or self-care (01) | DRG 885 ==
LOC: EDBD 19:45 → EMS 19:45 → 3EC 01-21 00:53
PROVIDERS: ADMIT Psychiatry & Neurology Psychiatry; ATTEND Psychiatry & Neurology Psychiatry
DX: F20.9 Schizophrenia, unspecified (principal); Z68.41 Body mass index [BMI] 40.0-44.9, adult; F41.9 Anxiety disorder, unspecified; E66.9 Obesity, unspecified; K59.00 Constipation, unspecified; Z20.822 Contact with and (suspected) exposure to COVID-19; G47.00 Insomnia, unspecified; F94.0 Selective mutism; Z79.899 Other long term (current) drug therapy
CPT/HCPCS: 70450; 76700; 80053; 80074; 83036; 83690; 85025; 86592; 87389; 87491; 87591; 90686; 90732; 99285; G0480; J1200; J1630; J2060; J3535; Q0162